=== PATIENT | female | born 1965 | race Caucasian/White ===

== ENCOUNTER → 2019-08-04 | Outpatient (CLI) | payer BC ==
[2019-08-05 06:10] LABS: THYROID PEROXIDASE (TPO) AB 12 IU/mL (0-34)
[2019-08-05 07:05] LABS: TOTAL PROTEIN, SERUM 7.2 g/dL (6.0-8.5)
[2019-08-05 08:07] LABS: COMPLEMENT C4 001834 25 mg/dL (14-44); IMMUNOGLOBULIN G, QNT 1146 mg/dL (700-1600); IMMUNOGLOBULIN M, QNT 141 mg/dL (26-217)
[2019-08-05 12:10] LABS: ANTI-DSDNA ANTIBODIES 096339 <1 IU/mL (0-9); SJOGREN ANTI-SS-A <0.2 AI (0.0-0.9); SJOREN AB, ANTI-SS-B <0.2 AI (0.0-0.9)
[2019-08-05 15:09] LABS: A/G RATIO 1.1 (0.7-1.7); ALBUMIN 3.7 g/dL (2.9-4.4); ALPHA-1-GLOBULIN 0.2 g/dL (0.0-0.4); ALPHA-2-GLOBULIN 0.7 g/dL (0.4-1.0); BETA GLOBULIN 1.2 g/dL (0.7-1.3); GAMMA GLOBULIN 1.3 g/dL (0.4-1.8); GLOBULIN, TOTAL 3.5 g/dL (2.2-3.9); M-SPIKE Not Observed g/dL (Not Observed)
[2019-08-05 16:06] LABS: THYROGLOBULIN ANTIBODY <1.0 IU/mL (0.0-0.9)
== END | disposition home or self-care (01) ==
LOC: LAB 17:14
PROVIDERS: Internal Medicine Rheumatology
DX: E55.9 Vitamin D deficiency, unspecified (principal); E03.9 Hypothyroidism, unspecified

== ENCOUNTER → 2024-03-02 | Outpatient (CLI) | payer BC ==
[2024-03-02 17:42] LABS: ALKALINE PHOSPHATASE 105 U/L (46-116); BUN 10 mg/dl (9-23); CHLORIDE 101 mmol/L (98-107); SGPT/ALT 30 U/L (5-49); TOTAL PROTEIN 7.4 gm/dL (6.0-8.0)
== END | disposition home or self-care (01) ==
LOC: LAB 16:58
PROVIDERS: ATTEND Nurse Practitioner Women's Health
DX: N95.1 Menopausal and female climacteric states (principal)